=== PATIENT | female | born 1990 | race African-American/Black ===

== ENCOUNTER 2017-04-21 14:15 | Emergency (ER) | payer OTHER ==
[2017-04-21] MEDS ORDERED: Ketorolac Tromethamine 30 MG/ML VIAL ONE (14:29)
--- NOTE | 2017-04-21 15:16 | RAD ---
THREE VIEWS LUMBAR SPINE: Date: 04-21-17 Comparison: None. History: Injury, pain. FINDINGS: Five lumbar type vertebral bodies are present with intact pedicles on frontal imaging. Lateral imagin g demonstrates normal vertebral body height and alignment. No evidence for acute fracture is seen. IMPRESSION: No acute findings. POS: [facility]
== END 2017-04-21 15:28 | disposition home or self-care (01) ==
LOC: ERS 14:15
DX: M54.5 Low back pain (principal); J45.909 Unspecified asthma, uncomplicated; W19.XXXA Unspecified fall, initial encounter
CPT/HCPCS: 72100; 96372; J1885

== ENCOUNTER 2017-05-25 20:24 | Emergency (ER) | payer OTHER ==
--- NOTE | 2017-05-25 21:45 | RAD ---
TWO VIEWS OF CHEST: Date: 05-25-17 Comparison: None. History: Three weeks of cough, congestion, and runny nose. FINDINGS: No pneumothorax, pleural fluid, focal consolidation or alveolar edema. Heart and mediastinal contours are unremarkable. IMPRESSION: No acute findings. POS: [facility]
== END 2017-05-25 22:55 | disposition home or self-care (01) ==
LOC: ERS 20:24
DX: J06.9 Acute upper respiratory infection, unspecified (principal); J45.909 Unspecified asthma, uncomplicated
CPT/HCPCS: 71046; 93005

== ENCOUNTER 2018-01-13 13:34 | Emergency (ER) | payer OTHER ==
[2018-01-13] MEDS ORDERED: Ibuprofen 800 MG TAB ONE (13:44)
--- NOTE | 2018-01-13 14:04 | RAD ---
THREE VIEWS LEFT FOOT: Comparison: None. History: Left foot pain after falling on stairs. FINDINGS: Three views of the left foot shows no evidence of acute fracture or dislocation. No soft tissue swell ing is seen. No degenerative changes are present. IMPRESSION: No evidence of acute osseous abnormality. POS: [facility]
== END 2018-01-13 14:28 | disposition home or self-care (01) ==
LOC: ERS 13:34
DX: S93.602A Unspecified sprain of left foot, initial encounter (principal); J45.909 Unspecified asthma, uncomplicated; F41.9 Anxiety disorder, unspecified; W18.30XA Fall on same level, unspecified, initial encounter

== ENCOUNTER 2018-03-04 18:03 | Emergency (ER) | payer OTHER ==
[2018-03-04] MEDS ORDERED: Metoclopramide HCl 10 MG/2 ML VIAL ONE (20:21)
[2018-03-04] MEDS ORDERED: diphenhydrAMINE 12.5 MG/5 ML UDCUP ONE (20:21)
[2018-03-04] MEDS ORDERED: diphenhydrAMINE 50 MG/ML VIAL ONE (20:25)
[2018-03-04 21:29] LABS: Bilirubin Small (Negative); Blood, Urine Negative (Negative); Clarity CLEAR (Clear); Glucose, Urine (Dipstick) Negative (Negative); Leukocyte Negative (Negative); Nitrite Negative (Negative); Pregnancy Test - Urine (BHCG) Negative (Negative); Pregu Control Background? CLEAR/WHITE (CLR/WHITE); Pregu Control Bar Appear? YES (CONTROL BAR); Protein, Urine (Dipstick) Negative (Neg-Trace); Specific Gravity 1.027 (1.002-1.036); Specific Gravity, Urine 1.027 (1.002-1.036); pH, Urine 5.5 (5.0-9.0)
== END 2018-03-04 22:20 | disposition home or self-care (01) ==
LOC: ERS 18:03
DX: R51 Headache (principal); J45.909 Unspecified asthma, uncomplicated; F41.9 Anxiety disorder, unspecified
CPT/HCPCS: 81003; 81025; 87081; 87086; 87430; 87804; 96365; 96366; 96375; J1200; J2765